=== PATIENT | female | born 1940 | race Caucasian/White ===

== ENCOUNTER → 2016-12-06 | Outpatient (CLI) | payer OTHER ==
[~2016-12-06] MED LIST: ANTIVERT25 MG PO; ATENOLOL25 MG PO; AZITHROMYCIN250 MG1 PO; DILTIAZEM 24HR240 MG PO; DUCODYL5 MG PO; ENOXAPARIN30 MG/0.3 SC; FLOMAX0.4 MG PO; GLUCOPHAGE500 MG PO; GLYBURIDE-METF1 EAC1 PO; HYDROCHLOROTHIA25 MG PO; IRON325 M1 PO; KEFLEX500 MG PO; LEVOTHYROXINE112 MCG PO; LISINOPRIL40 MG PO; OXYCODONE-ACET1 EACH PO; PERCOCET 5/31 TABLET PO; PRINIVIL20 MG PO; TENORMIN25 MG PO; ZOFRAN ODT8 MG PO; ZOFRAN4 MG PO
== END | disposition home or self-care (01) ==
DX: M17.12 Unilateral primary osteoarthritis, left knee (principal)
CPT/HCPCS: 97110 GP; 97150 GO; 97161 GP; 97165 GO; G8978 GP; G8979 GP; G8980 GP; G8987 GO; G8988 GO; G8989 GO

== ENCOUNTER 2017-01-10 08:42 | Inpatient (IN) | payer OTHER ==
[~2017-01-10] VITALS: Ht 152.4 cm; Wt 86.8 kg
[~2017-01-10 08:42] MED LIST changes: +TYLENOL REGULA325 MG PO
[2017-01-10 09:30] LABS: POINT-OF-CARE METER ID UU14174212
[2017-01-10 09:37] VITALS: BP 139/65
[2017-01-10 15:28] LABS: POINT-OF-CARE METER ID UU13113675; POINT-OF-CARE USER ID 515036437
[2017-01-10 16:15] VITALS: BP 103/53
[2017-01-10 17:47] LABS: HEMATOCRIT 32.2 % (36.0-46.0); MCH 29.7 PG (29.0-34.0); MCHC 32.6 G/DL (30.0-36.0); MEAN PLAT.VOLUME 11.1 uM^3 (9.5-12.4); PLATELET COUNT 109 K/uL (156-360); RBC DIS.WIDTH-CV 12.9 % (11.8-14.6); RBC DIS.WIDTH-SD 42.5 % (39-53); RED BLOOD COUNT 3.54 M/uL (3.80-5.20); WHITE BLOOD COUNT 4.4 K/uL (4.1-10.2)
[2017-01-10 20:11] VITALS: BP 102/54
[2017-01-11 00:13] VITALS: BP 109/52
[2017-01-11 04:30] VITALS: BP 126/61
[2017-01-11 06:04] LABS: MCV 90.9 FL (83-99)
[2017-01-11 06:23] LABS: ANION GAP 12 MEQ/L (2-14); CHLORIDE 103 MEQ/L (99-109); GFR ESTIMATE (CALCULATED) 46 mL/min/; GLUCOSE 192 mg/dL (70-99); POTASSIUM 3.8 MEQ/L (3.7-5.4); SAMPLE HEMOLYSIS CHECK 0; SAMPLE ICTERIC CHECK 0; SAMPLE LIPEMIA CHECK 0; SODIUM 135 MEQ/L (136-147); UREA NITROGEN (BUN) 19 mg/dL (9-23)
[2017-01-11 08:00] VITALS: BP 124/59
[2017-01-11 11:19] LABS: POINT-OF-CARE METER ID UU13113712
[2017-01-11 12:11] VITALS: BP 115/51
[2017-01-11 15:58] VITALS: BP 139/60
[2017-01-11 16:32] LABS: POINT-OF-CARE METER ID UU13113712
[2017-01-11 20:17] VITALS: BP 108/55
[2017-01-11 22:31] LABS: POINT-OF-CARE METER ID UU13113712
[2017-01-12] VITALS (8 sets, daily range): BP systolic 96–121; BP diastolic 51–65
[2017-01-12 04:58] LABS: HEMATOCRIT 29.2 % (36.0-46.0); MCV 89.6 FL (83-99)
[2017-01-12 07:49] LABS: POINT-OF-CARE METER ID UU13113712
[2017-01-12 11:41] LABS: POINT-OF-CARE METER ID UU13113712
[2017-01-12 16:25] LABS: POINT-OF-CARE METER ID UU13113712
[2017-01-12 22:45] LABS: POINT-OF-CARE METER ID UU14149397
[2017-01-13] MEDS ORDERED: SENNA PLUS TAB1 EACH PO (07:42)
[2017-01-13] MEDS ORDERED: LOVENOX30 MG/0.3 SC (07:43)
[2017-01-13] MEDS ORDERED: CELECOXIB200 MG PO (07:43)
[2017-01-13] MEDS ORDERED: HYDROCODON-ACE1 EAC7 PO (07:43)
[2017-01-13 08:08] VITALS: BP 94/45
[2017-01-13 11:42] LABS: POINT-OF-CARE METER ID UU14149397
== END 2017-01-13 12:52 | DRG 470 ==
LOC: 3WEST 08:42 → 2SOUTH 08:42 → 3WEST 13:43 → 3EAST 01-12 16:39
PROVIDERS: Orthopaedic Surgery
PROC: 0SRD0J9 Replacement of Left Knee Joint with Synthetic Substitute, Cemented, Open Approach (ICD-10-PCS; principal; 2017-01-10)
DX: M17.12 Unilateral primary osteoarthritis, left knee (principal); E11.9 Type 2 diabetes mellitus without complications; D64.9 Anemia, unspecified; E03.9 Hypothyroidism, unspecified; I10 Essential (primary) hypertension; M81.8 Other osteoporosis without current pathological fracture; Z87.81 Personal history of (healed) traumatic fracture; E66.9 Obesity, unspecified; Z85.038 Personal history of other malignant neoplasm of large intestine; Z85.850 Personal history of malignant neoplasm of thyroid; Z79.84 Long term (current) use of oral hypoglycemic drugs; K08.409 Partial loss of teeth, unspecified cause, unspecified class; Z68.37 Body mass index [BMI] 37.0-37.9, adult
CPT/HCPCS: 71010; 73560; 80048; 82948; 85014; 85018; 85027; 97530 GP; J0131; J0690; J1170; J1650; J1815; J2250; J2405; J7030; J7050

== ENCOUNTER 2017-01-15 19:42 | Inpatient (IN) | payer OTHER ==
[~2017-01-15] VITALS: Ht 152.4 cm; Wt 87.4 kg
[~2017-01-15 19:42] MED LIST changes: +CELECOXIB200 MG PO; +HYDROCODON-ACE1 EAC7 PO; +LOVENOX30 MG/0.3 SC; +SENNA PLUS TAB1 EACH PO
[2017-01-15 19:56] LABS: HEMATOCRIT 29.3 % (36.0-46.0); MCH 30.2 PG (29.0-34.0); MCHC 33.4 G/DL (30.0-36.0); MCV 90.4 FL (83-99); RBC DIS.WIDTH-CV 12.9 % (11.8-14.6); RBC DIS.WIDTH-SD 40.7 % (39-53); RED BLOOD COUNT 3.24 M/uL (3.80-5.20); WHITE BLOOD COUNT 3.7 K/uL (4.1-10.2)
[2017-01-15 19:57] LABS: MEAN PLAT.VOLUME 9.9 uM^3 (9.5-12.4); PLATELET COUNT 193 K/uL (156-360)
[2017-01-15 20:09] LABS: CHLORIDE 100 mEq/L (99-109); POTASSIUM 4.3 mEq/L (3.7-5.4); SODIUM 137 mEq/L (136-147)
[2017-01-15 20:11] LABS: GLUCOSE 175 mg/dL (70-99)
[2017-01-15 20:12] LABS: ANION GAP 11 MEQ/L (2-14)
[2017-01-15 20:13] LABS: TOTAL BILIRUBIN 0.9 mg/dL (0.0-1.0)
[2017-01-15 20:14] LABS: ALKALINE PHOSPHATASE 76 IU/L (3-129)
[2017-01-15 20:15] LABS: GFR ESTIMATE (CALCULATED) 39 mL/min/
[2017-01-15 20:16] LABS: UREA NITROGEN (BUN) 20 mg/dL (9-23)
[2017-01-15 20:40] LABS: LIPASE 35 U/L (1.0-51.0)
[2017-01-15] MEDS ORDERED: CELEBREX200 MG PO (21:56)
[2017-01-15] MEDS ORDERED: HYDROCODON-ACE1 EAC7 PO ×2 (21:57→22:02)
[2017-01-15] MEDS ORDERED: LOVENOX30 MG/0.3 SC (21:58)
[2017-01-15] MEDS ORDERED: DULCOLAX10 MG PR (22:01)
[2017-01-15] MEDS ORDERED: PHILLIPS'400 MG/5 M PO (22:03)
[2017-01-15] MEDS ORDERED: MIRALAX255 GM PO (22:03)
[2017-01-15] MEDS ORDERED: TUMS500 MG PO (22:03)
[2017-01-15] MEDS ORDERED: ZOFRAN4 MG PO (22:04)
[2017-01-15 22:42] LABS: ADD MIUA? YES; BILIRUBIN NEGATIVE; BLOOD SMALL; COLOR YELLOW ((YELLOW)); GLUCOSE (STRIP) NEGATIVE; KETONES 20; LEUKOCYTES NEGATIVE; NITRITE NEGATIVE; PROTEIN (STRIP) NEGATIVE; SPECIFIC GRAVITY 1.016 (1.000-1.030); UROBILINOGEN 0.2 MG/DL (0.2-1.0)
[2017-01-15 22:47] LABS: BACTERIA NONE SEEN /HPF; EPITHELIAL CELLS RARE /HPF; MUCUS TRACE /LPF; RED BLOOD CELLS 0-5 /HPF (0-5); UCUL ADDED? NO; URIC ACID CRYSTALS 1+ /HPF; WHITE BLOOD CELLS 0-5 /HPF (0-5)
[2017-01-15 23:46] VITALS: BP 139/62
[2017-01-16 01:20] LABS: METH RESISTANT S AUREUS PCR NEGATIVE (NEGATIVE)
[2017-01-16 01:22] LABS: PROBE CHECK PASS; SPECIMEN PROCESSING CONTROL PASS
[2017-01-16 03:52] VITALS: BP 113/54
[2017-01-16 05:09] LABS: CHLORIDE 106 mEq/L (99-109); SODIUM 139 mEq/L (136-147)
[2017-01-16 05:12] LABS: ANION GAP 9 MEQ/L (2-14)
[2017-01-16 05:13] LABS: GLUCOSE 105 mg/dL (70-99); POTASSIUM 3.2 mEq/L (3.7-5.4)
[2017-01-16 05:15] LABS: GFR ESTIMATE (CALCULATED) 46 mL/min/
[2017-01-16 05:16] LABS: UREA NITROGEN (BUN) 17 mg/dL (9-23)
[2017-01-16 05:32] LABS: HEMATOCRIT 24.8 % (36.0-46.0); MCHC 33.1 G/DL (30.0-36.0); MCV 90.8 FL (83-99); MEAN PLAT.VOLUME 9.9 uM^3 (9.5-12.4); PLATELET COUNT 145 K/uL (156-360); RBC DIS.WIDTH-CV 13.2 % (11.8-14.6); RBC DIS.WIDTH-SD 43.3 % (39-53); RED BLOOD COUNT 2.73 M/uL (3.80-5.20)
[2017-01-16 05:33] LABS: WHITE BLOOD COUNT 1.9 K/uL (4.1-10.2)
[2017-01-16 06:08] LABS: HEMATOLOGY COMMENT 1 REV; PLAT.SUFFICIENCY ADEQUATE
[2017-01-16 06:09] LABS: EOSINOPHIL (%) 2.7 % (0-5); EOSINOPHIL COUNT 0.1 K/uL (0-0.3); IMMATURE GRANULOCYTE (%) 0.5 % (0.0-0.7); LYMPHOCYTE COUNT 0.6 K/uL (1.0-2.8); MONOCYTE (%) 15.5 % (3-12); MONOCYTE COUNT 0.3 K/uL (0-0.8); NEUTROPHIL (%) 50.8 % (45-76)
[2017-01-16 08:21] VITALS: BP 114/58
[2017-01-16 11:49] VITALS: BP 136/63
[2017-01-16 15:57] VITALS: BP 134/65
[2017-01-16 19:15] VITALS: BP 135/61
[2017-01-16 19:28] LABS: HEMATOCRIT 26.3 % (36.0-46.0); MCHC 33.8 G/DL (30.0-36.0); MCV 91.6 FL (83-99); MEAN PLAT.VOLUME 10.1 uM^3 (9.5-12.4); PLATELET COUNT 158 K/uL (156-360); RBC DIS.WIDTH-CV 13.2 % (11.8-14.6); RED BLOOD COUNT 2.87 M/uL (3.80-5.20)
[2017-01-16 19:30] LABS: WHITE BLOOD COUNT 2.7 K/uL (4.1-10.2)
[2017-01-16 23:21] VITALS: BP 141/66
[2017-01-17 01:44] LABS: POINT-OF-CARE METER ID UU14149397
[2017-01-17 05:24] LABS: POINT-OF-CARE METER ID UU14149397
[2017-01-17 06:28] LABS: IRON 35 MCG/DL (35-150); MAGNESIUM 1.6 mg/dl (1.3-2.7)
[2017-01-17 06:45] LABS: LACTATE DEHYDROGENASE 162 IU/L (20-246)
[2017-01-17 07:52] VITALS: BP 147/72
[2017-01-17 08:22] LABS: ANION GAP 14 MEQ/L (2-14); CHLORIDE 105 MEQ/L (99-109); GFR ESTIMATE (CALCULATED) 57 mL/min/; POTASSIUM 3.5 MEQ/L (3.7-5.4); SODIUM 140 MEQ/L (136-147); UREA NITROGEN (BUN) 13 mg/dL (9-23)
[2017-01-17 08:31] LABS: GLUCOSE 71 mg/dL (70-99)
[2017-01-17 15:35] VITALS: BP 147/68
[2017-01-17 16:31] LABS: POINT-OF-CARE METER ID UU14188577
[2017-01-17 18:12] LABS: HEMATOCRIT 30.3 % (36.0-46.0); MCH 30.6 PG (29.0-34.0); MCV 92.7 FL (83-99); MEAN PLAT.VOLUME 10.2 uM^3 (9.5-12.4); PLATELET COUNT 167 K/uL (156-360); RBC DIS.WIDTH-CV 12.9 % (11.8-14.6); RBC DIS.WIDTH-SD 43.6 % (39-53); RED BLOOD COUNT 3.27 M/uL (3.80-5.20); WHITE BLOOD COUNT 3.4 K/uL (4.1-10.2)
[2017-01-17 22:22] LABS: POINT-OF-CARE METER ID UU14149397
[2017-01-18 00:24] VITALS: BP 125/62
[2017-01-18 05:38] LABS: EOSINOPHIL (%) 2.1 % (0-5); EOSINOPHIL COUNT 0.1 K/uL (0-0.3); HEMATOCRIT 25.5 % (36.0-46.0); IMMATURE GRANULOCYTE (%) 1.7 % (0.0-0.7); IMMATURE GRANULOCYTE COUNT 0.1 K/uL; LYMPHOCYTE COUNT 0.7 K/uL (1.0-2.8); MCH 29.6 PG (29.0-34.0); MCHC 32.5 G/DL (30.0-36.0); MCV 91.1 FL (83-99); MEAN PLAT.VOLUME 9.7 uM^3 (9.5-12.4); MONOCYTE (%) 8.4 % (3-12); MONOCYTE COUNT 0.2 K/uL (0-0.8); NEUTROPHIL COUNT 1.8 K/uL (1.8-6.4); PLATELET COUNT 148 K/uL (156-360); WHITE BLOOD COUNT 2.9 K/uL (4.1-10.2)
[2017-01-18 06:13] LABS: ANION GAP 9 MEQ/L (2-14); CHLORIDE 103 MEQ/L (99-109); GFR ESTIMATE (CALCULATED) 57 mL/min/; POTASSIUM 3.1 MEQ/L (3.7-5.4); SAMPLE HEMOLYSIS CHECK 0; SAMPLE ICTERIC CHECK 0; SAMPLE LIPEMIA CHECK 0; SODIUM 138 MEQ/L (136-147); UREA NITROGEN (BUN) 8 mg/dL (9-23)
[2017-01-18 06:14] LABS: GLUCOSE 109 mg/dL (70-99)
[2017-01-18 08:14] VITALS: BP 134/61
[2017-01-18 16:34] VITALS: BP 141/69
[2017-01-18 17:19] LABS: HEMATOCRIT 28.7 % (36.0-46.0); MCH 29.7 PG (29.0-34.0); MCHC 32.8 G/DL (30.0-36.0); MCV 90.5 FL (83-99); MEAN PLAT.VOLUME 9.9 uM^3 (9.5-12.4); PLATELET COUNT 176 K/uL (156-360); RBC DIS.WIDTH-CV 12.9 % (11.8-14.6); RBC DIS.WIDTH-SD 42.3 % (39-53); RED BLOOD COUNT 3.17 M/uL (3.80-5.20); WHITE BLOOD COUNT 3.7 K/uL (4.1-10.2)
[2017-01-18 22:00] VITALS: BP 132/80; BP 135/69
[2017-01-18 23:19] LABS: POINT-OF-CARE METER ID UU14188577
[2017-01-18 23:25] VITALS: BP 143/68
[2017-01-19 05:53] LABS: ANION GAP 8 MEQ/L (2-14); CHLORIDE 105 MEQ/L (99-109); GFR ESTIMATE (CALCULATED) 57 mL/min/; GLUCOSE 126 mg/dL (70-99); HEMATOCRIT 24.9 % (36.0-46.0); MCH 30.3 PG (29.0-34.0); MCHC 33.3 G/DL (30.0-36.0); MCV 90.9 FL (83-99); MEAN PLAT.VOLUME 9.6 uM^3 (9.5-12.4); PLATELET COUNT 132 K/uL (156-360); POTASSIUM 2.9 MEQ/L (3.7-5.4); RBC DIS.WIDTH-CV 13.1 % (11.8-14.6); RBC DIS.WIDTH-SD 42.7 % (39-53); RED BLOOD COUNT 2.74 M/uL (3.80-5.20); SAMPLE HEMOLYSIS CHECK 0; SAMPLE ICTERIC CHECK 0; SAMPLE LIPEMIA CHECK 0; SODIUM 138 MEQ/L (136-147); UREA NITROGEN (BUN) 6 mg/dL (9-23)
[2017-01-19 05:54] LABS: WHITE BLOOD COUNT 2.5 K/uL (4.1-10.2)
[2017-01-19 06:40] LABS: POINT-OF-CARE METER ID UU14149397
[2017-01-19 07:23] VITALS: BP 130/60
[2017-01-19 11:25] LABS: POINT-OF-CARE METER ID UU14149397
[2017-01-19 13:02] LABS: HEMATOCRIT 27.6 % (36.0-46.0); MCHC 32.6 G/DL (30.0-36.0); MEAN PLAT.VOLUME 9.7 uM^3 (9.5-12.4); PLATELET COUNT 147 K/uL (156-360); RBC DIS.WIDTH-CV 12.8 % (11.8-14.6); RBC DIS.WIDTH-SD 42.3 % (39-53); WHITE BLOOD COUNT 2.9 K/uL (4.1-10.2)
[2017-01-19 13:31] LABS: ANION GAP 7 MEQ/L (2-14); CHLORIDE 104 MEQ/L (99-109); GFR ESTIMATE (CALCULATED) 57 mL/min/; SAMPLE HEMOLYSIS CHECK 0; SAMPLE ICTERIC CHECK 0; SAMPLE LIPEMIA CHECK 0; SODIUM 138 MEQ/L (136-147); UREA NITROGEN (BUN) 6 mg/dL (9-23)
[2017-01-19 13:32] LABS: GLUCOSE 195 mg/dL (70-99); POTASSIUM 3.5 MEQ/L (3.7-5.4)
[2017-01-19 15:45] VITALS: BP 138/65
[2017-01-19 17:49] LABS: HEMATOCRIT 28.4 % (36.0-46.0); MCH 30.4 PG (29.0-34.0); MCHC 32.7 G/DL (30.0-36.0); MCV 92.8 FL (83-99); MEAN PLAT.VOLUME 9.6 uM^3 (9.5-12.4); PLATELET COUNT 171 K/uL (156-360); RBC DIS.WIDTH-CV 12.8 % (11.8-14.6); RBC DIS.WIDTH-SD 42.5 % (39-53); RED BLOOD COUNT 3.06 M/uL (3.80-5.20); WHITE BLOOD COUNT 3.3 K/uL (4.1-10.2)
[2017-01-19 21:55] LABS: POINT-OF-CARE METER ID UU14149397
[2017-01-20 00:10] VITALS: BP 137/63
[2017-01-20 08:11] VITALS: BP 133/61
[2017-01-20 08:44] LABS: HEMATOCRIT 27.8 % (36.0-46.0); MCH 30.4 PG (29.0-34.0); MCHC 32.4 G/DL (30.0-36.0); MCV 93.9 FL (83-99); MEAN PLAT.VOLUME 9.9 uM^3 (9.5-12.4); PLATELET COUNT 161 K/uL (156-360); RBC DIS.WIDTH-CV 13.2 % (11.8-14.6); RBC DIS.WIDTH-SD 44.3 % (39-53); RED BLOOD COUNT 2.96 M/uL (3.80-5.20)
[2017-01-20 09:11] LABS: ANION GAP 9 MEQ/L (2-14); CHLORIDE 104 MEQ/L (99-109); GFR ESTIMATE (CALCULATED) 57 mL/min/; GLUCOSE 139 mg/dL (70-99); POTASSIUM 3.4 MEQ/L (3.7-5.4); SAMPLE HEMOLYSIS CHECK 0; SAMPLE ICTERIC CHECK 0; SAMPLE LIPEMIA CHECK 0; SODIUM 140 MEQ/L (136-147); UREA NITROGEN (BUN) 4 mg/dL (9-23)
[2017-01-20] MEDS ORDERED: CYANOCOBAL1000 MCG/2 SC (10:49)
[2017-01-20 11:52] LABS: POINT-OF-CARE METER ID UU14149397; POINT-OF-CARE USER ID BHSLRM
[2017-01-20] MEDS ORDERED: LOVENOX30 MG/0.3 SC (12:05)
[2017-01-20] MEDS ORDERED: CELEBREX200 MG PO (12:06)
[2017-01-20] MEDS ORDERED: HYDROCODON-ACE1 EAC7 PO (12:06)
== END 2017-01-20 12:13 | disposition home or self-care (01) | DRG 389 ==
LOC: EME → EDBD 19:42 → EME 19:42 → EDOF 22:41 → 3EAST 22:41
PROVIDERS: Hospitalist; Internal Medicine; Physician Assistant; Surgery
DX: K56.69 Other intestinal obstruction (principal); D61.818 Other pancytopenia; N17.9 Acute kidney failure, unspecified; E86.0 Dehydration; E87.6 Hypokalemia; E11.9 Type 2 diabetes mellitus without complications; I10 Essential (primary) hypertension; D51.9 Vitamin B12 deficiency anemia, unspecified; E89.0 Postprocedural hypothyroidism; E66.01 Morbid (severe) obesity due to excess calories; Z96.653 Presence of artificial knee joint, bilateral; Z68.37 Body mass index [BMI] 37.0-37.9, adult; Z85.038 Personal history of other malignant neoplasm of large intestine; Z85.850 Personal history of malignant neoplasm of thyroid; Z90.49 Acquired absence of other specified parts of digestive tract; Z88.0 Allergy status to penicillin; Z88.2 Allergy status to sulfonamides
CPT/HCPCS: 74000; 74020; 74176; 76705; 80048; 80048 91; 80053; 81003; 82272; 82607; 82746; 82948; 83540; 83605; 83615; 83690; 83735; 84439; 84443; 84466; 85025; 85027; 87641; 93971; 97530 GO; 99281; 99285; J0780; J1170; J1644; J2270; J3420; J3480; J7030; J7050; S0028

== ENCOUNTER 2017-03-01 07:38 | Day surgery (SDC) | payer OTHER ==
[~2017-03-01] VITALS: Ht 149.9 cm; Wt 67.1 kg
[~2017-03-01 07:38] MED LIST changes: +CARDIZEM CD,CA240 MG PO; +CELEBREX200 MG PO; +CYANOCOBAL1000 MCG/2 IM; +CYANOCOBAL1000 MCG/2 SC; +DULCOLAX10 MG PR; +MIRALAX255 GM PO; +PHILLIPS'400 MG/5 M PO; +PROMETHAZINE HC25 M1 PO; +TUMS500 MG PO
[2017-03-01 08:03] VITALS: BP 119/58
[2017-03-01 08:21] LABS: POINT-OF-CARE METER ID UU14174212
[2017-03-01 12:10] LABS: POINT-OF-CARE METER ID UU13113675
[2017-03-01] MEDS ORDERED: NORCO 5/3251 TABLET PO (12:23)
[2017-03-01 13:02] VITALS: BP 126/50
== END 2017-03-01 14:20 | disposition home or self-care (01) ==
LOC: SDC 07:38
PROVIDERS: Surgery
DX: K80.10 Calculus of gallbladder with chronic cholecystitis without obstruction (principal); Z85.038 Personal history of other malignant neoplasm of large intestine; Z85.850 Personal history of malignant neoplasm of thyroid; I10 Essential (primary) hypertension; E11.9 Type 2 diabetes mellitus without complications; Z79.84 Long term (current) use of oral hypoglycemic drugs; M19.90 Unspecified osteoarthritis, unspecified site; Z79.01 Long term (current) use of anticoagulants; Z88.2 Allergy status to sulfonamides; Z82.49 Family history of ischemic heart disease and other diseases of the circulatory system; Z83.3 Family history of diabetes mellitus
CPT/HCPCS: 74300; 82948; 88304; J2765; J3010; S0020

== ENCOUNTER 2017-03-18 20:19 | Observation (INO) | payer OTHER ==
[~2017-03-18] VITALS: Ht 149.9 cm; Wt 80.9 kg
[~2017-03-18 20:19] MED LIST changes: +NORCO 5/3251 TABLET PO
[2017-03-18 21:17] LABS: EOSINOPHIL (%) 1.5 % (0-5); EOSINOPHIL COUNT 0.1 K/uL (0-0.3); HEMATOCRIT 33.5 % (36.0-46.0); IMMATURE GRANULOCYTE (%) 0.4 % (0.0-0.7); INSTRUMENT ABS NEUTROPHIL CT 3.6 K/uL; LYMPHOCYTE COUNT 0.6 K/uL (1.0-2.8); MCHC 32.8 G/DL (30.0-36.0); MCV 91.3 FL (83-99); MEAN PLAT.VOLUME 11.3 uM^3 (9.5-12.4); MONOCYTE (%) 6.2 % (3-12); MONOCYTE COUNT 0.3 K/uL (0-0.8); NEUTROPHIL (%) 77.8 % (45-76); NEUTROPHIL COUNT 3.6 K/uL (1.8-6.4); PLATELET COUNT 120 K/uL (156-360); RBC DIS.WIDTH-CV 12.3 % (11.8-14.6); RBC DIS.WIDTH-SD 41.1 % (39-53); RED BLOOD COUNT 3.67 M/uL (3.80-5.20); WHITE BLOOD COUNT 4.7 K/uL (4.1-10.2)
[2017-03-18 21:24] LABS: CHLORIDE 105 mEq/L (99-109); POTASSIUM 3.7 mEq/L (3.7-5.4); SODIUM 139 mEq/L (136-147)
[2017-03-18 21:26] LABS: GLUCOSE 185 mg/dL (70-99); INTER. NORMALIZED RATIO 1.1; PROTHROMBIN TIME 10.7 (9.2-11.2); PTT 26.8 (25-32)
[2017-03-18 21:27] LABS: ANION GAP 10 MEQ/L (2-14)
[2017-03-18 21:29] LABS: Estimated Average Glucose 117 mg/dL (70-123); HEMOGLOBIN A1c (GLYCOHEMOGLOB) 5.7 % HGB (Below 5.7)
[2017-03-18 21:30] LABS: GFR ESTIMATE (CALCULATED) 42 mL/min/
[2017-03-18 21:31] LABS: UREA NITROGEN (BUN) 22 mg/dL (9-23)
[2017-03-18 21:38] LABS: TROP-I INTERPRETATION NEGATIVE; TROPONIN-I < 0.01 ng/mL (0.0-0.30)
[2017-03-18 21:43] LABS: ADD MIUA? YES; BILIRUBIN NEGATIVE; BLOOD NEGATIVE; GLUCOSE (STRIP) NEGATIVE; KETONES NEGATIVE; LEUKOCYTES SMALL; NITRITE NEGATIVE; PROTEIN (STRIP) NEGATIVE; SPECIFIC GRAVITY 1.015 (1.000-1.030); UROBILINOGEN 0.2 MG/DL (0.2-1.0)
[2017-03-18 21:44] LABS: COLOR YELLOW ((YELLOW))
[2017-03-18 21:56] LABS: BACTERIA RARE /HPF; EPITHELIAL CELLS 1+ /HPF; HYALINE CASTS 0-5 /LPF; MUCUS TRACE /LPF; UCUL ADDED? NO; UNCLASSIFIED CRYSTALS 2+ /HPF; WHITE BLOOD CELLS 30-40 /HPF (0-5)
[2017-03-18 21:58] LABS: HDL CHOLESTEROL 48 MG/DL (Desirable>=50); LDL CHOLESTEROL 56 mg/dL (Desirable<100); NON-HDL CHOLESTEROL 84 mg/dL (Desirable<160); TOTAL CHOLESTEROL 132 mg/dL (Desirable<200); TRIGLYCERIDES 139 MG/DL (Normal: <150)
[2017-03-18] MEDS ORDERED: ZESTRIL40 MG PO (23:09)
[2017-03-18] MEDS ORDERED: CYANOCOBALAM1000 MCG PO (23:09)
[2017-03-18] MEDS ORDERED: CALCIUM 600 +1 EA16 PO (23:10)
[2017-03-18] MEDS ORDERED: TYLENOL EXTRA500 MG PO (23:10)
[2017-03-18 23:55] LABS: DIRECT BILIRUBIN 0.2 mg/dL (0.0-0.3); SAMPLE HEMOLYSIS CHECK 0; SAMPLE ICTERIC CHECK 0; SAMPLE LIPEMIA CHECK 0; TOTAL BILIRUBIN 0.6 MG/DL (0.0-1.0)
[2017-03-19 00:01] LABS: ALKALINE PHOSPHATASE 69 IU/L (3-129); LIPASE 26 U/L (1.0-51.0)
[2017-03-19 00:43] VITALS: BP 144/64
[2017-03-19 04:00] VITALS: BP 119/61
[2017-03-19 08:20] VITALS: BP 140/67
[2017-03-19] MEDS ORDERED: CEFTIN500 MG PO (11:30)
== END 2017-03-19 12:12 | disposition home or self-care (01) ==
LOC: EME → EDBD 20:19 → EDOF 23:27 → 5WEST 03-19 00:23
PROVIDERS: Emergency Medicine; Hospitalist
DX: R11.2 Nausea with vomiting, unspecified (principal); R42 Dizziness and giddiness; N39.0 Urinary tract infection, site not specified; E11.9 Type 2 diabetes mellitus without complications; I10 Essential (primary) hypertension; E78.5 Hyperlipidemia, unspecified; D64.9 Anemia, unspecified; D69.6 Thrombocytopenia, unspecified; R00.1 Bradycardia, unspecified; Z96.652 Presence of left artificial knee joint; E53.8 Deficiency of other specified B group vitamins; E89.0 Postprocedural hypothyroidism; Z85.850 Personal history of malignant neoplasm of thyroid; Z85.038 Personal history of other malignant neoplasm of large intestine
CPT/HCPCS: 70450; 70551; 71010; 80048; 80061; 80076; 81003; 82948; 83036; 83690; 84484; 85025; 85610; 85730; 93005; 93970; 99281; 99285; G0378; J0696; J1644; J2405; J7030; J7050

== ENCOUNTER 2017-03-30 20:28 | Emergency (ER) | payer OTHER ==
[~2017-03-30] VITALS: Ht 149.9 cm; Wt 91.5 kg
[~2017-03-30 20:28] MED LIST changes: +CALCIUM 600 +1 EA16 PO; +CEFTIN500 MG PO; +CYANOCOBALAM1000 MCG PO; +TYLENOL EXTRA500 MG PO; +ZESTRIL40 MG PO
[2017-03-30 21:16] LABS: HEMATOCRIT 29.9 % (36.0-46.0); MCH 30.2 PG (29.0-34.0); MCHC 33.1 G/DL (30.0-36.0); MCV 91.2 FL (83-99); RBC DIS.WIDTH-CV 12.7 % (11.8-14.6); RBC DIS.WIDTH-SD 41.9 % (39-53); RED BLOOD COUNT 3.28 M/uL (3.80-5.20); WHITE BLOOD COUNT 3.7 K/uL (4.1-10.2)
[2017-03-30 21:21] LABS: CHLORIDE 104 mEq/L (99-109); POTASSIUM 3.8 mEq/L (3.7-5.4); SODIUM 137 mEq/L (136-147)
[2017-03-30 21:23] LABS: GLUCOSE 166 mg/dL (70-99)
[2017-03-30 21:25] LABS: ANION GAP 10 MEQ/L (2-14); TOTAL BILIRUBIN 0.4 mg/dL (0.0-1.0)
[2017-03-30 21:27] LABS: ALKALINE PHOSPHATASE 61 IU/L (3-129); GFR ESTIMATE (CALCULATED) 51 mL/min/
[2017-03-30 21:28] LABS: UREA NITROGEN (BUN) 18 mg/dL (9-23)
[2017-03-30 21:29] LABS: DIRECT BILIRUBIN 0.2 mg/dL (0.0-0.3)
[2017-03-30 21:30] LABS: LIPASE 32 U/L (1.0-51.0)
[2017-03-30 21:34] LABS: ADD MIUA? YES; BILIRUBIN NEGATIVE; BLOOD SMALL; COLOR STRAW ((YELLOW)); GLUCOSE (STRIP) NEGATIVE; KETONES NEGATIVE; LEUKOCYTES NEGATIVE; NITRITE NEGATIVE; PROTEIN (STRIP) NEGATIVE; SPECIFIC GRAVITY 1.012 (1.000-1.030); UROBILINOGEN 0.2 MG/DL (0.2-1.0)
[2017-03-30 21:52] LABS: BACTERIA NONE SEEN /HPF; EPITHELIAL CELLS RARE /HPF; MUCUS NONE SEEN /LPF; RED BLOOD CELLS 0-5 /HPF (0-5); UCUL ADDED? NO; WHITE BLOOD CELLS 0-5 /HPF (0-5)
[2017-03-30 23:10] VITALS: BP 135/72
[2017-03-30 23:46] LABS: MEAN PLAT.VOLUME 10.8 uM^3 (9.5-12.4); PLAT.SUFFICIENCY DECREASED; PLATELET COUNT 84 K/uL (156-360)
== END 2017-03-30 23:11 | disposition home or self-care (01) ==
LOC: EME → EDBD 20:28 → EME 23:11
PROVIDERS: Emergency Medicine
DX: R11.2 Nausea with vomiting, unspecified (principal); E86.0 Dehydration; Z88.1 Allergy status to other antibiotic agents; Z88.2 Allergy status to sulfonamides; E11.9 Type 2 diabetes mellitus without complications; Z79.84 Long term (current) use of oral hypoglycemic drugs; I10 Essential (primary) hypertension; Z87.442 Personal history of urinary calculi; E03.9 Hypothyroidism, unspecified; Z85.038 Personal history of other malignant neoplasm of large intestine
CPT/HCPCS: 74176; 80048; 80076; 81003; 83690; 85027; 93005; 99281; 99284; J2405; J7030

== ENCOUNTER 2017-08-21 12:20 | Emergency (ER) | payer OTHER ==
[~2017-08-21] VITALS: Ht 157.5 cm; Wt 88.1 kg
[2017-08-21 12:59] LABS: ADD MIUA? NO; BILIRUBIN NEGATIVE; BLOOD NEGATIVE; COLOR STRAW ((YELLOW)); GLUCOSE (STRIP) NEGATIVE; KETONES NEGATIVE; LEUKOCYTES NEGATIVE; NITRITE NEGATIVE; PROTEIN (STRIP) NEGATIVE; SPECIFIC GRAVITY 1.012 (1.000-1.030); UCUL ADDED? NO; UROBILINOGEN 0.2 MG/DL (0.2-1.0)
[2017-08-21 13:26] LABS: HEMATOCRIT 37.2 % (36.0-46.0); MCH 30.4 PG (29.0-34.0); MCHC 33.3 G/DL (30.0-36.0); MCV 91.2 FL (83-99); MEAN PLAT.VOLUME 11.7 uM^3 (9.5-12.4); PLATELET COUNT 112 K/uL (156-360); RBC DIS.WIDTH-CV 12.5 % (11.8-14.6); RBC DIS.WIDTH-SD 41.8 % (39-53); RED BLOOD COUNT 4.08 M/uL (3.80-5.20); WHITE BLOOD COUNT 4.4 K/uL (4.1-10.2)
[2017-08-21 13:35] LABS: CHLORIDE 102 mEq/L (99-109); POTASSIUM 4.7 mEq/L (3.7-5.4)
[2017-08-21 13:36] LABS: SODIUM 136 mEq/L (136-147)
[2017-08-21 13:38] LABS: GLUCOSE 143 mg/dL (70-99)
[2017-08-21 13:39] LABS: ANION GAP 7 MEQ/L (2-14)
[2017-08-21 13:40] LABS: TOTAL BILIRUBIN 0.9 mg/dL (0.0-1.0)
[2017-08-21 13:41] LABS: ALKALINE PHOSPHATASE 80 IU/L (3-129); GFR ESTIMATE (CALCULATED) 42 mL/min/
[2017-08-21 13:43] LABS: UREA NITROGEN (BUN) 25 mg/dL (9-23)
[2017-08-21 14:33] VITALS: BP 132/69
== END 2017-08-21 15:10 | disposition home or self-care (01) ==
LOC: EME 12:20
DX: K52.9 Noninfective gastroenteritis and colitis, unspecified (principal); E11.9 Type 2 diabetes mellitus without complications; Z79.84 Long term (current) use of oral hypoglycemic drugs; E03.9 Hypothyroidism, unspecified; Z85.038 Personal history of other malignant neoplasm of large intestine; Z87.442 Personal history of urinary calculi
CPT/HCPCS: 80053; 81003; 85027; 99281; 99285

== ENCOUNTER 2017-10-19 07:56 | Emergency (ER) | payer OTHER ==
[~2017-10-19] VITALS: Ht 162.6 cm; Wt 86.4 kg
[2017-10-19 08:15] LABS: ADD MIUA? YES; BILIRUBIN NEGATIVE; BLOOD LARGE; COLOR YELLOW ((YELLOW)); GLUCOSE (STRIP) NEGATIVE; KETONES NEGATIVE; LEUKOCYTES SMALL; NITRITE NEGATIVE; PROTEIN (STRIP) 30; SPECIFIC GRAVITY 1.017 (1.000-1.030); UROBILINOGEN 0.2 MG/DL (0.2-1.0)
[2017-10-19 08:27] LABS: BACTERIA RARE /HPF; CALCIUM OXALATE CRYSTALS 2+ /HPF; EPITHELIAL CELLS 2+ /HPF; MUCUS TRACE /LPF; RED BLOOD CELLS TNTC /HPF (0-5); UCUL ADDED? YES; WHITE BLOOD CELLS 0-5 /HPF (0-5)
[2017-10-19 08:37] LABS: EOSINOPHIL (%) 2.4 % (0-5); EOSINOPHIL COUNT 0.1 K/uL (0-0.3); HEMATOCRIT 33.2 % (36.0-46.0); IMMATURE GRANULOCYTE (%) 0.6 % (0.0-0.7); INSTRUMENT ABS NEUTROPHIL CT 2.4 K/uL; LYMPHOCYTE COUNT 0.6 K/uL (1.0-2.8); MCH 30.5 PG (29.0-34.0); MCV 89.5 FL (83-99); MEAN PLAT.VOLUME 12.3 uM^3 (9.5-12.4); MONOCYTE (%) 5.8 % (3-12); MONOCYTE COUNT 0.2 K/uL (0-0.8); NEUTROPHIL (%) 73.2 % (45-76); NEUTROPHIL COUNT 2.4 K/uL (1.8-6.4); RBC DIS.WIDTH-CV 12.2 % (11.8-14.6); RBC DIS.WIDTH-SD 39.8 % (39-53); RED BLOOD COUNT 3.71 M/uL (3.80-5.20); WHITE BLOOD COUNT 3.3 K/uL (4.1-10.2)
[2017-10-19 08:44] LABS: PLATELET COUNT 101 K/uL (156-360)
[2017-10-19 08:50] LABS: CHLORIDE 106 mEq/L (99-109); POTASSIUM 4.1 mEq/L (3.7-5.4); SODIUM 139 mEq/L (136-147)
[2017-10-19 08:52] LABS: GLUCOSE 152 mg/dL (70-99)
[2017-10-19 08:53] LABS: ANION GAP 10 MEQ/L (2-14)
[2017-10-19 08:54] LABS: TOTAL BILIRUBIN 0.5 mg/dL (0.0-1.0)
[2017-10-19 08:56] LABS: ALKALINE PHOSPHATASE 69 IU/L (3-129); GFR ESTIMATE (CALCULATED) 46 mL/min/
[2017-10-19 08:57] LABS: UREA NITROGEN (BUN) 18 mg/dL (9-23)
[2017-10-19 08:59] LABS: LIPASE 44 U/L (1.0-51.0)
[2017-10-19] MEDS ORDERED: NORCO 5/3251 TABLET PO (10:01)
[2017-10-19 10:18] VITALS: BP 133/70
== END 2017-10-19 10:19 | disposition home or self-care (01) ==
LOC: EME 07:56
PROVIDERS: Emergency Medicine
DX: N20.0 Calculus of kidney (principal); E11.9 Type 2 diabetes mellitus without complications; E03.9 Hypothyroidism, unspecified; Z90.49 Acquired absence of other specified parts of digestive tract; Z85.038 Personal history of other malignant neoplasm of large intestine; Z88.2 Allergy status to sulfonamides
CPT/HCPCS: 74176; 80053; 81003; 83605; 83690; 85025; 87077; 87086; 87186; 99281; 99285; J2270; J2405; J7040

== ENCOUNTER 2018-01-05 11:30 | Emergency (ER) | payer OTHER ==
[~2018-01-05] VITALS: Ht 152.4 cm; Wt 85.0 kg
[2018-01-05] MEDS ORDERED: VITAMIN C250 MG PO (12:02)
[2018-01-05] MEDS ORDERED: CRANBERRY500 M3 PO (12:02)
[2018-01-05] MEDS ORDERED: ESCITALOPRAM OXA5 MG PO (12:02)
[2018-01-05] MEDS ORDERED: PROBIOTIC1 EAC1 PO (12:02)
[2018-01-05 12:09] LABS: HEMATOCRIT 34.8 % (36.0-46.0); HEMOGLOBIN 11.9 G/DL (11.9-15.5); MCH 30.4 PG (29.0-34.0); MCHC 34.2 G/DL (30.0-36.0); MCV 88.8 FL (83-99); PLATELET COUNT 93 K/uL (156-360); RBC DIS.WIDTH-CV 12.2 % (11.8-14.6); RBC DIS.WIDTH-SD 39.8 % (39-53); RED BLOOD COUNT 3.92 M/uL (3.80-5.20); WHITE BLOOD COUNT 4.6 K/uL (4.1-10.2)
[2018-01-05 12:19] LABS: ALBUMIN 3.9 g/dL (3.2-4.8); CHLORIDE 105 mEq/L (99-109); POTASSIUM 4.1 mEq/L (3.7-5.4); SODIUM 138 mEq/L (136-147)
[2018-01-05 12:21] LABS: GLUCOSE 201 mg/dL (70-99); TOTAL PROTEIN 6.7 g/dL (6.4-8.3)
[2018-01-05 12:23] LABS: TOTAL BILIRUBIN 0.7 mg/dL (0.0-1.0)
[2018-01-05 12:25] LABS: ALKALINE PHOSPHATASE 67 IU/L (3-129); CREATININE 1.1 mg/dL (0.6-1.3); GFR ESTIMATE (CALCULATED) 51 mL/min/
[2018-01-05 12:26] LABS: UREA NITROGEN (BUN) 17 mg/dL (9-23)
[2018-01-05 12:27] LABS: AST (GOT) 22 IU/L (2-34)
[2018-01-05 12:28] LABS: ALT (GPT) 15 IU/L (3-49)
[2018-01-05 12:50] LABS: LIPASE 27 U/L (1.0-51.0)
[2018-01-05 13:55] LABS: APPEARANCE CLEAR ((CLEAR)); BILIRUBIN NEGATIVE; BLOOD NEGATIVE; COLOR STRAW ((YELLOW)); GLUCOSE (STRIP) NEGATIVE; KETONES NEGATIVE; LEUKOCYTES NEGATIVE; NITRITE NEGATIVE; PROTEIN (STRIP) NEGATIVE; SPECIFIC GRAVITY 1.013 (1.000-1.030); UCUL ADDED? NO; UROBILINOGEN 0.2 MG/DL (0.2-1.0)
[2018-01-05] MEDS ORDERED: ZOFRAN4 MG PO (14:40)
[2018-01-05 14:41] LABS: TROP-I INTERPRETATION NEGATIVE; TROPONIN-I < 0.01 ng/mL (0.0-0.30)
[2018-01-05 15:32] VITALS: BP 131/71
== END 2018-01-05 15:32 | disposition home or self-care (01) ==
LOC: EME 11:30
PROVIDERS: Emergency Medicine Emergency Medical Services
DX: R11.2 Nausea with vomiting, unspecified (principal); R42 Dizziness and giddiness; R53.1 Weakness; K57.30 Diverticulosis of large intestine without perforation or abscess without bleeding; I51.7 Cardiomegaly; I10 Essential (primary) hypertension; E03.9 Hypothyroidism, unspecified; E11.9 Type 2 diabetes mellitus without complications; Z79.84 Long term (current) use of oral hypoglycemic drugs; Z87.440 Personal history of urinary (tract) infections; Z87.442 Personal history of urinary calculi; Z85.038 Personal history of other malignant neoplasm of large intestine; Z90.49 Acquired absence of other specified parts of digestive tract
CPT/HCPCS: 74176; 80053; 81003; 83690; 84484; 85027; 99281; 99285; J0780; J2405

== ENCOUNTER 2018-03-08 23:56 | Emergency (ER) | payer OTHER ==
[~2018-03-08] VITALS: Ht 149.9 cm; Wt 85.5 kg
[~2018-03-08 23:56] MED LIST changes: +CRANBERRY500 M3 PO; +ESCITALOPRAM OXA5 MG PO; +PROBIOTIC1 EAC1 PO; +VITAMIN C250 MG PO
[2018-03-09 00:47] LABS: BASOPHIL (%) 0.4 % (0-1); EOSINOPHIL (%) 2.2 % (0-5); EOSINOPHIL COUNT 0.1 K/uL (0-0.3); HEMATOCRIT 34.2 % (36.0-46.0); HEMOGLOBIN 11.7 G/DL (11.9-15.5); IMMATURE GRANULOCYTE (%) 0.4 % (0.0-0.7); LYMPHOCYTE (%) 14.9 % (15-42); LYMPHOCYTE COUNT 0.8 K/uL (1.0-2.8); MCH 30.5 PG (29.0-34.0); MCHC 34.2 G/DL (30.0-36.0); MCV 89.3 FL (83-99); MONOCYTE (%) 5.7 % (3-12); MONOCYTE COUNT 0.3 K/uL (0-0.8); NEUTROPHIL (%) 76.4 % (45-76); NEUTROPHIL COUNT 4.3 K/uL (1.8-6.4); PLATELET COUNT 106 K/uL (156-360); RBC DIS.WIDTH-CV 12.8 % (11.8-14.6); RBC DIS.WIDTH-SD 41.4 % (39-53); RED BLOOD COUNT 3.83 M/uL (3.80-5.20); WHITE BLOOD COUNT 5.6 K/uL (4.1-10.2)
[2018-03-09 00:54] LABS: PTT 35.4 SEC (25-37)
[2018-03-09 01:00] LABS: ALBUMIN 4.2 g/dL (3.2-4.8); CHLORIDE 105 mEq/L (99-109); SODIUM 139 mEq/L (136-147)
[2018-03-09 01:03] LABS: GLUCOSE 174 mg/dL (70-99)
[2018-03-09 01:05] LABS: TOTAL BILIRUBIN 0.6 mg/dL (0.0-1.0)
[2018-03-09 01:06] LABS: ALKALINE PHOSPHATASE 63 IU/L (3-129); CREATININE 1.3 mg/dL (0.6-1.3); GFR ESTIMATE (CALCULATED) 42 mL/min/
[2018-03-09 01:07] LABS: UREA NITROGEN (BUN) 28 mg/dL (9-23)
[2018-03-09 01:08] LABS: AST (GOT) 13 IU/L (2-34)
[2018-03-09 01:09] LABS: ALT (GPT) 9 IU/L (3-49)
[2018-03-09 01:10] LABS: LIPASE 51 U/L (1.0-51.0)
[2018-03-09 01:27] LABS: APPEARANCE CLEAR ((CLEAR)); BILIRUBIN NEGATIVE; BLOOD NEGATIVE; COLOR YELLOW ((YELLOW)); GLUCOSE (STRIP) NEGATIVE; KETONES 5; LEUKOCYTES NEGATIVE; NITRITE NEGATIVE; PROTEIN (STRIP) NEGATIVE; SPECIFIC GRAVITY 1.017 (1.000-1.030); UCUL ADDED? NO; UROBILINOGEN 0.2 MG/DL (0.2-1.0)
[2018-03-09 03:22] LABS: TROP-I INTERPRETATION NEGATIVE; TROPONIN-I < 0.01 ng/mL (0.0-0.30)
[2018-03-09] MEDS ORDERED: PROMETHAZINE HC25 M1 PO (04:09)
[2018-03-09] MEDS ORDERED: IRON325 M1 PO (08:05)
[2018-03-09] MEDS ORDERED: ZOFRAN4 MG PO (08:05)
[2018-03-09] MEDS ORDERED: CIPRO250 MG PO (08:05)
[2018-03-09] MEDS ORDERED: B-121000 MC2 PO (08:06)
[2018-03-09] MEDS ORDERED: ELIQUIS5 MG PO (08:33)
[2018-03-09 09:39] VITALS: BP 109/58
== END 2018-03-09 09:44 | disposition home or self-care (01) ==
LOC: EME 23:56
PROVIDERS: Emergency Medicine
DX: I48.91 Unspecified atrial fibrillation (principal); R10.13 Epigastric pain; R11.2 Nausea with vomiting, unspecified; I10 Essential (primary) hypertension; E86.0 Dehydration; E03.9 Hypothyroidism, unspecified; E11.9 Type 2 diabetes mellitus without complications; Z79.84 Long term (current) use of oral hypoglycemic drugs; Z85.038 Personal history of other malignant neoplasm of large intestine; Z85.850 Personal history of malignant neoplasm of thyroid; Z87.442 Personal history of urinary calculi; Z90.49 Acquired absence of other specified parts of digestive tract; Z82.49 Family history of ischemic heart disease and other diseases of the circulatory system; Z88.2 Allergy status to sulfonamides; Z88.1 Allergy status to other antibiotic agents
CPT/HCPCS: 74176; 80053; 81003; 83605; 83690; 84484; 85025; 85610; 85730; 93005; 99281; 99284; J2765; J7030; J7040

== ENCOUNTER 2018-03-20 12:00 | Emergency (ER) | payer OTHER ==
[~2018-03-20] VITALS: Ht 152.4 cm; Wt 87.1 kg
[~2018-03-20 12:00] MED LIST changes: +B-121000 MC2 PO; +CIPRO250 MG PO; +ELIQUIS5 MG PO
[2018-03-20 12:49] LABS: HEMATOCRIT 34.3 % (36.0-46.0); HEMOGLOBIN 11.9 G/DL (11.9-15.5); MCH 31.2 PG (29.0-34.0); MCHC 34.7 G/DL (30.0-36.0); PLATELET COUNT 95 K/uL (156-360); RBC DIS.WIDTH-CV 12.6 % (11.8-14.6); RBC DIS.WIDTH-SD 41.5 % (39-53); RED BLOOD COUNT 3.81 M/uL (3.80-5.20); WHITE BLOOD COUNT 4.9 K/uL (4.1-10.2)
[2018-03-20 13:00] LABS: ALBUMIN 4.1 g/dL (3.2-4.8)
[2018-03-20 13:01] LABS: CHLORIDE 102 mEq/L (99-109); POTASSIUM 3.7 mEq/L (3.7-5.4); SODIUM 139 mEq/L (136-147)
[2018-03-20 13:03] LABS: GLUCOSE 201 mg/dL (70-99); TOTAL PROTEIN 6.8 g/dL (6.4-8.3)
[2018-03-20 13:05] LABS: TOTAL BILIRUBIN 0.8 mg/dL (0.0-1.0)
[2018-03-20 13:06] LABS: ALKALINE PHOSPHATASE 63 IU/L (3-129)
[2018-03-20 13:07] LABS: CREATININE 1.2 mg/dL (0.6-1.3); GFR ESTIMATE (CALCULATED) 46 mL/min/
[2018-03-20 13:08] LABS: AST (GOT) 17 IU/L (2-34); UREA NITROGEN (BUN) 21 mg/dL (9-23)
[2018-03-20 13:10] LABS: ALT (GPT) 11 IU/L (3-49); LIPASE 41 U/L (1.0-51.0); TROP-I INTERPRETATION NEGATIVE; TROPONIN-I 0.01 ng/mL (0.0-0.30)
[2018-03-20 15:29] LABS: APPEARANCE CLEAR ((CLEAR)); BILIRUBIN NEGATIVE; BLOOD NEGATIVE; COLOR STRAW ((YELLOW)); GLUCOSE (STRIP) NEGATIVE; KETONES NEGATIVE; LEUKOCYTES NEGATIVE; NITRITE NEGATIVE; PROTEIN (STRIP) NEGATIVE; SPECIFIC GRAVITY 1.011 (1.000-1.030); UCUL ADDED? NO; UROBILINOGEN 0.2 MG/DL (0.2-1.0)
[2018-03-20] MEDS ORDERED: ZOFRAN4 MG PO (16:08)
[2018-03-20 16:49] VITALS: BP 108/72
== END 2018-03-20 16:49 | disposition home or self-care (01) ==
LOC: EME → EDBD 12:00 → EME 12:00
PROVIDERS: Emergency Medicine
DX: K29.70 Gastritis, unspecified, without bleeding (principal); K44.9 Diaphragmatic hernia without obstruction or gangrene; K57.30 Diverticulosis of large intestine without perforation or abscess without bleeding; R16.1 Splenomegaly, not elsewhere classified; Z85.038 Personal history of other malignant neoplasm of large intestine; E11.9 Type 2 diabetes mellitus without complications; Z79.84 Long term (current) use of oral hypoglycemic drugs; E03.9 Hypothyroidism, unspecified; Z87.442 Personal history of urinary calculi; Z90.49 Acquired absence of other specified parts of digestive tract; Z88.2 Allergy status to sulfonamides
CPT/HCPCS: 74177; 80053; 81003; 83690; 84484; 85027; 93005; 99281; 99285; J0780; J2405; J7030